=== PATIENT | male | born 1995 | race African-American/Black ===

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

== ENCOUNTER → 2017-10-11 08:49 | Outpatient (CLI) | payer MEDICAID ==
--- NOTE | ~2017-10-11 | EC ---
PATIENT:DAVION BECERRA DATE OF SERVICE: 10/11/17 SEX: M MEDICAL RECORD: [id number] DATE OF : [birth year] LOCATION:[facility] AGE OF PATIENT: 22 ADMISSION DATE: 10/11/17 REFERRING PHYSICIAN: INTERPRETING PHYSICIAN: KRISTEL SHINE MD ECHOCARDIOGRAM REPORT ECHO CHARGES 4 ECHO COMPLETE Date: CLINICAL DIAGNOSIS: MURMUR ECHOCARDIOGRAPHIC MEASUREMENTS (adult normal given) AC root (d.<3.7cm) 2.2 cm LV Septum d (<1.2 cm> 1.2 cm Valve Excursion 1.6 cm LV Septum (systole) 1.7 cm Left Atria (s.<4.0cm> 3.2 cm LVPW d(<1.2cm) 1.2 cm RV (d.<2.3cm) 1.9 cm LVPW (sytole) 1.6 cm LV diastole(<5.6CM) 4.3 cm MV E-F(>70mm/sec) cm LV systole 2.3 cm LVOT Diameter 1.5 cm MV exc.(>10mm) cm Est.ejection fraction (50-75%) % DOPPLER: LVIT cm/sec A 50.0 cm/sec E 107 cm/sec LA cm/sec RVSP 38.0 mmHg LVOT 98.0 cm/sec AOP1/2T m/s Asc. Ao 200 cm/sec RVOT 72.0 cm/sec RA cm/sec PA 116 cm/sec AV Gradient Peak 16.0 mmHg AV Mean 5.7 mmHg AV Area 1.0 cm MV Gradient Peak 4.5 mmHg MV Mean 1.2 mmHg MV Area cm COMMENTS: [place] Sewer: 1 SANDER BOOE Refrigeration Manager: 1 Dr. Shine TAPE# PACS Pericardial Effusion N DATE OF SERVICE: PROCEDURE: Echocardiogram. FINDINGS: 1. Left ventricular chamber size is within normal limits. Left ventricular systolic function is normal. Overall ejection fraction estimated at 60%. 2. Left atrium, right atrium, and right ventricle chamber sizes are within normal limits. 3. Valvular structures have normal structure and motion. ECHOCARDIOGRAM REPORT [id number] DAVION BECERRA 4. Doppler interrogation reveals mild mitral regurgitation, mild to moderate tricuspid regurgitation, no other valvular insufficiency or stenosis. Pulmonary systolic pressure is normal estimated 38 mmHg. 5. No evidence of pericardial effusion or left ventricular thrombus. TRANSINT:[id number] Voice Confirmation ID: [id number] DOCUMENT ID: [id number] KRISTEL SHINE MD at 1056 CC: [id number] DICTATION DATE: 10/11/17 1001 ELASTIC ATTACHER ZIGZAG: 10/11/17 1137 DEP CLI 10/11/17 [place] [id number] [place] [id number]
== END | disposition home or self-care (01) ==
LOC: D.ECHO 08:49
DX: R01.1 Cardiac murmur, unspecified (principal)